=== PATIENT | male | born 1990 | race Caucasian/White ===

== ENCOUNTER 2023-05-29 13:56 | Emergency (ER) | payer MEDICAID ==
[~2023-05-29] VITALS: Ht 180.3 cm; Wt 72.6 kg
[2023-05-29 14:04] VITALS: BP 132/86; PULSE 113; RESP 16; TEMP 98.1; O2SAT 100
[2023-05-29] MEDS ORDERED: ACETAMINOPHEN EXTRA STRENGTH 500 MG TAB PO ONE (14:20)
[2023-05-29 15:33] VITALS: BP 132/86; PULSE 113; RESP 16; TEMP 98.1; O2SAT 100
== END 2023-05-29 15:30 | disposition home or self-care (01) ==
LOC: MED 13:56
DX: S43.401A Unspecified sprain of right shoulder joint, initial encounter (principal); S00.03XA Contusion of scalp, initial encounter; Z02.89 Encounter for other administrative examinations; W22.8XXA Striking against or struck by other objects, initial encounter; Y92.89 Other specified places as the place of occurrence of the external cause; Y93.89 Activity, other specified; Y99.8 Other external cause status
CPT/HCPCS: 70450; 73030; 99284